=== PATIENT | female | born 1985 | race African-American/Black ===

== ENCOUNTER 2017-06-22 14:40 | Emergency (ER) | payer SELFPAY ==
[~2017-06-22] VITALS: Ht 162.6 cm; Wt 87.0 kg
[2017-06-22] MEDS ORDERED: IOHEXOL 350 MG/ML 10 ML VIAL (for RAD DIAG) IVCONTRAST ONE (14:41)
[2017-06-22 14:42] VITALS: BP 120/76; PULSE 82; RESP 14; TEMP 98.9; O2SAT 100
[2017-06-22] MEDS ORDERED: SODIUM CHLOR 0.9% 1000 ML INJ 1,000 ML IV SCH (17:25)
--- NOTE | 2017-06-22 17:28 | PD ---
HPI Chief Complaint: Abdominal Pain Time Seen by Provider: 17:22 Travel History International Travel<30 days: No Contact w/Intl Traveler<30days: No Traveled to known affect area: No History of Present Illness HPI 32-year-old female here for evaluation of vomiting and abdominal pain. The patient reports that she has had several episodes of vomiting over the last 3 days. She started having abdominal pain today. Pain is periumbilical and epigastric, described as sharp and stabbing, constant, worse with movements, moderate to severe. Emesis is bilious. History of cholecystectomy and bilateral tubal ligation. No urinary symptoms. No vaginal bleeding or discharge. PFSH Past Medical History Cardiovascular Problems: No Diminished Hearing: No Gastrointestinal Disorders: Yes (GB Dse) Genitourinary: Yes (HX OF UTI'S) Immunizations Current: Yes Migraines: Yes Thyroid Disease: No Ulcer: No ?: Not Menopausal: Yes : 3 Para: 3 Miscarriage: 0 : 0 Ectopic : No Ovarian Cysts: No Tubal Ligation: Yes Past Surgical History Abdominal Surgery: Yes (3 C SECTIONS) Section: Yes (X3) Cholecystectomy: Yes Gynecologic Surgery: Yes (C-SECT X 3) Hysterectomy: No Social History Alcohol Use: Yes (OCCASSIONAL) Tobacco Use: Yes (5 cig ) Substance Use: Yes (Marijuana ) Allergies-Medications (Allergen,Severity, Reaction): Coded Allergies: ciprofloxacin (Unverified Allergy, Severe, Rash, 01/22/17) morphine (Unverified Allergy, Severe, Swelling, 01/22/17) Reported Meds & Prescriptions Reported Meds & Active Scripts Active No Active Prescriptions or Reported Medications Review of Systems Except as stated in HPI: all other systems reviewed are Neg Physical Exam Narrative GENERAL: Well-developed, well-nourished, no apparent distress. SKIN: Focused skin assessment warm/dry. HEAD: Atraumatic. Normocephalic. EYES: Pupils equal and round. No scleral icterus. No injection or drainage. ENT: Mucous membranes pink and moist. NECK: Trachea midline. No JVD. CARDIOVASCULAR: Regular rate and rhythm. No murmur appreciated. RESPIRATORY: No accessory muscle use. Clear to auscultation. Breath sounds equal bilaterally. GASTROINTESTINAL: Abdomen soft, nondistended. Mild periumbilical and epigastric tenderness without rebound or guarding. No hernias. MUSCULOSKELETAL: No obvious deformities. No clubbing. No cyanosis. No edema. NEUROLOGICAL: Awake and alert. No obvious cranial nerve deficits. Motor grossly within normal limits. Normal speech. PSYCHIATRIC: Appropriate mood and affect; insight and judgment normal. Data Data Last Documented VS Vital Signs Date Time Temp Pulse Resp B/P (MAP) Pulse Ox O2 Delivery O2 Flow Rate FiO2 06/22/17 18:19 96 Room Air 06/22/17 14:42 98.9 82 14 Orders Orders Complete Blood Count With Diff (06/22/17 17:25) Comprehensive Metabolic Panel (06/22/17 17:25) Lipase (06/22/17:25) Prothrombin Time / Inr (Pt) (06/22/17:25) Act Partial Throm Time (Ptt) (06/22/17:25) Urinalysis - C+S If Indicated (06/22/17 17:25) Ct Abd/Pel W Iv Contrast(Rout) (06/22/17 17:25) Iv Access Insert/Monitor (06/22/17 17:25) Ecg Monitoring (06/22/17 17:25) Oximetry (06/22/17 17:25) Ondansetron Inj (Zofran Inj) (06/22/17 17:30) Sodium Chlor 0.9% 1000 Ml Inj (Ns 1000 M (06/22/17 17:25) Sodium Chloride 0.9% Flush (Ns Flush) (06/22/17 17:30) Ed Urine Pregnancytest Poc (06/22/17 17:25) Hydromorphone Pf Inj (Dilaudid Pf Inj) (06/22/17 17:30) Pantoprazole Inj (Protonix Inj) (06/22/17 17:30) Influenzae A/B Antigen (06/22/17 17:28) Iohexol 350 Inj (Omnipaque 350 Inj) (06/22/17 14:41) Labs Laboratory Tests Test 06/22/17 17:30 White Blood Count 11.7 TH/MM3 Red Blood Count 4.75 MIL/MM3 Hemoglobin 13.3 GM/DL Hematocrit 39.1 % Mean Corpuscular Volume 82.3 FL Mean Corpuscular Hemoglobin 27.9 PG Mean Corpuscular Hemoglobin Concent 33.9 % Red Cell Distribution Width 15.1 % Platelet Count 333 TH/MM3 Mean Platelet Volume 8.7 FL Neutrophils (%) (Auto) 64.4 % Lymphocytes (%) (Auto) 26.9 % Monocytes (%) (Auto) 6.8 % Eosinophils (%) (Auto) 1.3 % Basophils (%) (Auto) 0.6 % Neutrophils # (Auto) 7.5 TH/MM3 Lymphocytes # (Auto) 3.1 TH/MM3 Monocytes # (Auto) 0.8 TH/MM3 Eosinophils # (Auto) 0.1 TH/MM3 Basophils # (Auto) 0.1 TH/MM3 CBC Comment DIFF FINAL Differential Comment Prothrombin Time 9.7 SEC Prothromb Time International Ratio 1.0 RATIO Activated Partial Thromboplast Time 29.2 SEC Urine Color YELLOW Urine Turbidity HAZY Urine pH 7.0 Urine Specific [place] 1.025 Urine Protein TRACE mg/dL Urine Glucose (UA) NEG mg/dL Urine Ketones NEG mg/dL Urine Occult Blood NEG Urine Nitrite NEG Urine Bilirubin NEG Urine Urobilinogen LESS THAN 2.0 MG/DL Urine Leukocyte Esterase TRACE Urine RBC 2 /hpf Urine WBC 1 /hpf Urine Squamous Epithelial Cells 7 /hpf Urine Hyaline Casts 1 /lpf Urine Mucus FEW /lpf Microscopic Urinalysis Comment CULT NOT INDICATED Blood Urea Nitrogen 9 MG/DL Creatinine 0.87 MG/DL Random Glucose 75 MG/DL Total Protein 8.8 GM/DL Albumin 4.0 GM/DL Calcium Level 9.0 MG/DL Alkaline Phosphatase 77 U/L Aspartate Amino Transf (AST/SGOT) 15 U/L Alanine Aminotransferase (ALT/SGPT) 21 U/L Total Bilirubin 0.4 MG/DL Sodium Level 136 MEQ/L Potassium Level 4.2 MEQ/L Chloride Level 107 MEQ/L Carbon Dioxide Level 23.2 MEQ/L Anion Gap 6 MEQ/L Estimat Glomerular Filtration Rate 91 ML/MIN Lipase 146 U/L MDM Medical Decision Making Medical Screen Exam Complete: Yes Emergency Medical Condition: Yes Differential Diagnosis Gastritis, pancreatitis, hepatobiliary disease, appendicitis, bowel obstruction Narrative Course Vital signs are within normal limits. CBC is unremarkable. CMP is unremarkable. Lipase is 146. UA is not suggestive of UTI. Urine is negative. CT abdomen pelvis shows no acute abnormality. Patient was made aware of all findings per she was given pain medication and antiemetics. She is resting comfortably. There are no peritoneal signs on exam. She likely has gastritis or peptic ulcer disease. She'll be started on Protonix and advised to follow-up with a primary care physician as well as a machine sweeper brush maker this week. She was informed on when to return to the emergency department. She verbalizes understanding and agreement with plan. Diagnosis Primary Impression: Abdominal pain Qualified Codes: R10.13 - Epigastric pain Additional Impression: Nausea and vomiting Qualified Codes: R11.2 - Nausea with vomiting, unspecified Referrals: Octavia Koroma MD 3 days [facility] 3 days Additional Instructions: Follow-up with a primary care physician this week. Follow-up with machine sweeper brush maker Dr. Koroma or machine sweeper brush maker of your choice this week. Return to the emergency department for worsening symptoms or any other concerns. Scripts Pantoprazole (Protonix) 40 Mg Tab 40 MG PO DAILY for Reflux, #30 TAB 2 Refills Prov: Naveen Paez MD 06/22/17 Ondansetron Odt (Zofran Odt) 4 Mg Tab 4 MG SL Q8HR Y for Nausea/Vomiting, #20 TAB 0 Refills Prov: Naveen Paez MD 06/22/17 Disposition: 01 DISCHARGE HOME Condition: Stable Navene Paez MD Jun 22, 2017 17:28
[2017-06-22] MEDS ORDERED: HYDROmorphone HCL PF 2 MG/ML VIAL IV PUSH ONE (17:30)
[2017-06-22] MEDS ORDERED: SODIUM CHLORIDE 0.9% FLUSH 10 ML FLUSH IV FLUSH PRN (17:30)
[2017-06-22] MEDS ORDERED: ONDANSETRON HCL 4 MG/2 ML VIAL IVP ONE (17:30)
[2017-06-22] MEDS ORDERED: PANTOPRAZOLE SODIUM 40 MG VIAL IV PUSH ONE (17:30)
[2017-06-22 18:10] LABS: AUTOMATED NEUTROPHIL # 7.5 TH/MM3 (1.8-7.7); BASOPHIL # 0.1 TH/MM3 (0-0.2); BASOPHIL % 0.6 % (0.0-2.0); EOSINOPHIL # 0.1 TH/MM3 (0-0.4); EOSINOPHIL % 1.3 % (0.0-4.0); HEMATOCRIT 39.1 % (35.0-46.0); HEMOGLOBIN 13.3 GM/DL (11.6-15.3); LYMPH % 26.9 % (9.0-44.0); LYMPHOCYTE # 3.1 TH/MM3 (1.0-4.8); MEAN CELL VOLUME 82.3 FL (80.0-100.0); MEAN CORPUSCULAR HEMOGLOBIN 27.9 PG (27.0-34.0); MEAN CORPUSCULAR HGB CONC 33.9 % (32.0-36.0); MEAN PLATELET VOLUME 8.7 FL (7.0-11.0); MONO % 6.8 % (0.0-8.0); MONOCYTE # 0.8 TH/MM3 (0-0.9); NEUT % 64.4 % (16.0-70.0); PLATELET COUNT 333 TH/MM3 (150-450); RED BLOOD COUNT 4.75 MIL/MM3 (4.00-5.30); RED CELL DISTRIBUTION WIDTH 15.1 % (11.6-17.2); WHITE BLOOD COUNT 11.7 TH/MM3 (4.0-11.0)
[2017-06-22 18:15] LABS: BILIRUBIN, URINE NEG (NEG); BLOOD, URINE NEG (NEG); GLUCOSE,URINE NEG (NEG); HYALINE CAST, URINE 1 /lpf (RARE); KETONE, URINE NEG (NEG); MUCUS URINE FEW /lpf (OCC); NITRITE,URINE NEG (NEG); SQUAMOUS EPITHELIAL CELL URINE 7 /hpf (0-5); URINE COLOR YELLOW (YELLW/STRAW); URINE LEUKOCYTE ESTERASE TRACE (NEG)
[2017-06-22 18:19] VITALS: O2SAT 96
[2017-06-22 18:23] LABS: PROTHROMBIN TIME - PATIENT 9.7 SEC (9.8-11.6)
[2017-06-22 18:46] LABS: AST (GOT) 15 U/L (15-37); BICARBONATE 23.2 MEQ/L (21.0-32.0); BLOOD UREA NITROGEN 9 MG/DL (7-18); CHLORIDE 107 MEQ/L (98-107); CREATININE 0.87 MG/DL (0.50-1.00); GLOMERULAR FILTRATION RATE 91 ML/MIN (>89); GLUCOSE,RANDOM 75 MG/DL (74-106); LIPASE 146 U/L (73-393); SODIUM (NA) 136 MEQ/L (136-145)
[2017-06-22 18:47] LABS: ALT (GPT) 21 U/L (10-53)
[2017-06-22 18:49] LABS: ALKALINE PHOSPHATASE 77 U/L (45-117); TOTAL BILIRUBIN ADULT 0.4 MG/DL (0.2-1.0); TOTAL PROTEIN 8.8 GM/DL (6.4-8.2)
--- NOTE | 2017-06-22 19:08 | RADRPT ---
EXAM DATE/TIME: 06/22/2017 18:50 [facility] COMPARISON: CT ABDOMEN & PELVIS W/O CONTRAST, February 18, 2016, 6:50. INDICATIONS : Abdomen pain. IV CONTRAST: 80 cc Omnipaque 350 (iohexol) IV ORAL CONTRAST: No oral contrast ingested. RADIATION DOSE: 16.49 CTDIvol (mGy) MEDICAL HISTORY : None SURGICAL HISTORY : Cholecystectomy. Tubal ligation. ENCOUNTER: Initial ACUITY: 1 day PAIN SCALE: 10/10 LOCATION: Bilateral abdomen TECHNIQUE: Volumetric scanning of the abdomen and pelvis was performed. Using automated exposure control and ad justment of the mA and/or kV according to patient size, radiation dose was kept as low as reasonably achievable to obtain optimal diagnostic quality images. DICOM format image data is available electro nically for review and comparison. FINDINGS: LOWER LUNGS: The visualized lower lungs are clear. LIVER: Homogeneous density without lesion. There is no dilation of the biliary tree. No calcified gallston es. SPLEEN: Normal size without lesion. PANCREAS: Within normal limits. KIDNEYS: 2.6 cm benign appearing lower pole cyst on the left. No stones, solid mass or hydronephrosis on eithe r side. ADRENAL GLANDS: Within normal limits. VASCULAR: There is no aortic aneurysm. BOWEL/MESENTERY: The stomach, small bowel, and colon demonstrate no acute abnormality. There is no free intraperitone al air or fluid. The appendix is well-visualized, normal. ABDOMINAL WALL: Within normal limits. RETROPERITONEUM: There is no lymphadenopathy. BLADDER: No wall thickening or mass. REPRODUCTIVE: Within normal limits. INGUINAL: There is no lymphadenopathy or hernia. MUSCULOSKELETAL: Within normal limits for patient age. CONCLUSION: No acute abnormality. Sebastien Perdomo MD on June 22, 2017 at 19:04 Board Certified Radiologist. This report was verified electronically.
[2017-06-22] MEDS ORDERED: ZOFR4TAB3 SL (19:19)
[2017-06-22] MEDS ORDERED: PROT40TA PO (19:19)
== END 2017-06-22 19:39 | disposition home or self-care (01) ==
LOC: NEPD 14:40
DX: R10.13 Epigastric pain (principal); R11.2 Nausea with vomiting, unspecified; F17.210 Nicotine dependence, cigarettes, uncomplicated
CPT/HCPCS: 74177; 80053; 81001; 83690; 84703; 85025; 85610; 85730; 87804; 96361; 96374; 96375; 99285; C9113; J1170; J2405; J7030; Q9967

== ENCOUNTER 2017-07-28 00:03 | Emergency (ER) | payer SELFPAY ==
[~2017-07-28] VITALS: Ht 162.6 cm; Wt 86.0 kg
[~2017-07-28 00:03] MED LIST: PROT40TA PO; ZOFR4TAB3 SL
[2017-07-28 00:05] VITALS: BP 118/79; PULSE 94; RESP 16; TEMP 98.5; O2SAT 100
[2017-07-28] MEDS ORDERED: OSEL75 PO (00:28)
[2017-07-28] MEDS ORDERED: ZITHTAB PO (00:28)
--- NOTE | 2017-07-28 00:28 | PD ---
HPI Chief Complaint: Cold / Flu Symptoms Time Seen by Provider: 00:15 Travel History International Travel<30 days: No Contact w/Intl Traveler<30days: No Traveled to known affect area: No History of Present Illness HPI 32-year-old female complains of headache, sore throat, coughing and body ache. Patient states her symptoms started this morning. Patient states that she had intermittent coughing for the past 2 months. Patient denies any chest pain or shortness of breath. Patient denies abdominal pain. Patient denies any nausea vomiting diarrhea. Patient is a smoker. Patient denies any history of asthma or COPD. PFSH Past Medical History Cardiovascular Problems: No Diminished Hearing: No Gastrointestinal Disorders: Yes (GB Dse) Genitourinary: Yes (HX OF UTI'S) Immunizations Current: Yes Migraines: Yes Thyroid Disease: No Ulcer: No ?: Not LMP: NOW Menopausal: Yes : 3 Para: 3 Miscarriage: 0 : 0 Ectopic : No Ovarian Cysts: No Tubal Ligation: Yes Past Surgical History Abdominal Surgery: Yes (3 C SECTIONS) Section: Yes (X3) Cholecystectomy: Yes Gynecologic Surgery: Yes (C-SECT X 3) Hysterectomy: No Social History Alcohol Use: Yes (OCCASSIONAL) Tobacco Use: Yes (5 cig ) Substance Use: Yes (Marijuana ) Allergies-Medications (Allergen,Severity, Reaction): Coded Allergies: ciprofloxacin (Unverified Allergy, Severe, Rash, 07/28/17) morphine (Unverified Allergy, Severe, Swelling, 07/28/17) Reported Meds & Prescriptions Reported Meds & Active Scripts Active Protonix (Pantoprazole Sodium) 40 Mg Tab 40 Mg PO DAILY Zofran Odt (Ondansetron Odt) 4 Mg Tab 4 Mg SL Q8HR PRN Review of Systems General / Constitutional: No: Fever Eyes: No: Visual changes HENT: No: Headaches Cardiovascular: No: Chest Pain or Discomfort Respiratory: Positive: Cough, No: Shortness of Breath Gastrointestinal: No: Abdominal Pain Genitourinary: No: Dysuria Musculoskeletal: No: Pain Skin: No Rash Neurologic: No: Weakness Psychiatric: No: Depression Endocrine: No: Polydipsia Hematologic/Lymphatic: No: Easy Bruising Physical Exam Narrative GENERAL: Well-nourished, well-developed patient. SKIN: Focused skin assessment warm/dry. HEAD: Normocephalic. EYES: No scleral icterus. No injection or drainage. Throat: Mild erythematous. NECK: Supple, trachea midline. No JVD or lymphadenopathy. No meningismus CARDIOVASCULAR: Regular rate and rhythm without murmurs, gallops, or rubs. RESPIRATORY: Breath sounds equal bilaterally. No accessory muscle use. GASTROINTESTINAL: Abdomen soft, non-tender, nondistended. MUSCULOSKELETAL: No cyanosis, or edema. BACK: Nontender without obvious deformity. No CVA tenderness. Data Data Last Documented VS Vital Signs Date Time Temp Pulse Resp B/P (MAP) Pulse Ox O2 Delivery O2 Flow Rate FiO2 07/28/17 00:05 98.5 94 16 118/79 (92) 100 Room Air Orders Orders Acetaminophen (Tylenol) (07/28/17 00:30) Chest, Single Ap (07/28/17 00:22) MDM Medical Decision Making Medical Screen Exam Complete: Yes Emergency Medical Condition: Yes Differential Diagnosis Differential diagnosis including pharyngitis, bronchitis, pneumonia, reactive airway disease. Narrative Course 32-year-old female with headache, sore throat, coughing, body ache. Patient states that she has chronic recurrent cough for the past 2 months. Patient is a smoker. Diagnosis Primary Impression: Bronchitis Additional Impression: Viral syndrome Patient Instructions: General Instructions Additional Instructions: Z-Zafar as directed. [id number] cough medication as directed. Tylenol and ibuprofen for headache. Follow-up with personal physician. Return if worse. Med/Other Pt SpecificInfo: Prescription(s) given Scripts Oseltamivir (Tamiflu) 75 Mg Cap 75 MG PO BID for Mgmt Viral Infection, #10 CAP 0 Refills Prov: Teddy Pearson MD 07/28/17 Azithromycin (Zithromax Z-Zafar) 250 Mg Dspk 250 MG PO DIRECTED for Infection, #1 DSPK 0 Refills 500 MG (2 tabs) day 1, then 1 tab days 2-5. Prov: Teddy Pearson MD 07/28/17 Disposition: 01 DISCHARGE HOME Condition: Stable Teddy Pearson MD Jul 28, 2017 00:28
[2017-07-28] MEDS ORDERED: ACETAMINOPHEN 325 MG TAB PO ONE (00:30)
--- NOTE | 2017-07-28 00:54 | RADRPT ---
EXAM DATE/TIME: 07/28/2017 00:35 [facility] COMPARISON: No previous studies available for comparison. INDICATIONS : Vomiting and headache x 1 day MEDICAL HISTORY : None. SURGICAL HISTORY : None. ENCOUNTER: Initial ACUITY: 1 day PAIN SCORE: 7/10 LOCATION: Bilateral chest FINDINGS: A single view of the chest demonstrates the lungs to be symmetrically aerated without evidence of mas s, infiltrate or effusion. The cardiomediastinal contours are unremarkable. Osseous structures are intact. CONCLUSION: No acute disease. Valente Barber MD on July 28, 2017 at 0:52 Board Certified Radiologist. This report was verified electronically.
== END 2017-07-28 01:16 | disposition home or self-care (01) ==
LOC: NEPD 00:03
DX: J40 Bronchitis, not specified as acute or chronic (principal); B34.9 Viral infection, unspecified; F17.210 Nicotine dependence, cigarettes, uncomplicated
CPT/HCPCS: 71045; 99283

== ENCOUNTER 2017-09-22 18:08 | Emergency (ER) | payer SELFPAY ==
[~2017-09-22] VITALS: Ht 165.1 cm; Wt 90.5 kg
[~2017-09-22 18:08] MED LIST changes: +OSEL75 PO; +ZITHTAB PO
[2017-09-22 18:25] VITALS: BP 124/60; PULSE 81; RESP 18; TEMP 98; O2SAT 100
[2017-09-22] MEDS ORDERED: PROM25TA10 PO ×2 (20:43→20:52)
[2017-09-22] MEDS ORDERED: MECL-62 PO ×2 (20:43→20:52)
[2017-09-22] MEDS ORDERED: ZOFR4TAB3 SL ×2 (20:43→20:52)
[2017-09-22] MEDS ORDERED: SODIUM CHLOR 0.9% 1000 ML INJ 1,000 ML IV ONE (20:45)
[2017-09-22] MEDS ORDERED: MECLIZINE HCL 25 MG TAB PO ONE (20:45)
[2017-09-22] MEDS ORDERED: ONDANSETRON HCL 4 MG/2 ML VIAL IV PUSH ONE (20:45)
--- NOTE | 2017-09-22 20:45 | PD ---
HPI Chief Complaint: Dizziness Time Seen by Provider: 20:27 Travel History International Travel<30 days: No Contact w/Intl Traveler<30days: No Traveled to known affect area: No History of Present Illness HPI 32-year-old female complains of dizziness and nausea vomiting. Patient states that his symptoms started this morning. Patient states that the dizziness is worse with head movement. Patient denies any visual change. Patient states that she has mild aching headache. Patient denies any neck pain. Patient denies earache and sore throat. Patient denies any coughing congestion. Patient denies abdominal pain. Patient states that the nausea vomiting associate with the dizziness. Patient denies any dysuria or frequency. Patient denies any vaginal discharge or bleeding. Patient denies any chance of being . Patient denies any ear ringing or hearing impaired. PFSH Past Medical History Cardiovascular Problems: No Diminished Hearing: No Gastrointestinal Disorders: Yes Genitourinary: Yes (HX OF UTI'S) Immunizations Current: Yes Migraines: Yes Thyroid Disease: No Ulcer: No ?: Not LMP: 09/22/17 Menopausal: Yes : 3 Para: 3 Miscarriage: 0 : 0 Ectopic : No Ovarian Cysts: No Tubal Ligation: Yes Past Surgical History Abdominal Surgery: Yes (3 C SECTIONS) Section: Yes (X3) Cholecystectomy: Yes Gynecologic Surgery: Yes (C-SECT X 3) Hysterectomy: No Social History Alcohol Use: Yes (OCCASSIONAL) Tobacco Use: Yes (5 cig ) Substance Use: Yes (Marijuana ) Allergies-Medications (Allergen,Severity, Reaction): Coded Allergies: ciprofloxacin (Unverified Allergy, Severe, Rash, 07/28/17) morphine (Unverified Allergy, Severe, Swelling, 07/28/17) Reported Meds & Prescriptions Reported Meds & Active Scripts Active Phenergan (Promethazine HCl) 25 Mg Tablet 25 Mg PO Q6H PRN Zofran Odt (Ondansetron Odt) 4 Mg Tab 4 Mg SL Q6HR PRN Meclizine (Meclizine HCl) 25 Mg Tab 25 Mg PO TID PRN Tamiflu (Oseltamivir Phosphate) 75 Mg Cap 75 Mg PO BID Zithromax Z-Zafar (Azithromycin) 250 Mg Dspk 250 Mg PO DIRECTED 500 MG (2 tabs) day 1, then 1 tab days 2-5. Protonix (Pantoprazole Sodium) 40 Mg Tab 40 Mg PO DAILY Zofran Odt (Ondansetron Odt) 4 Mg Tab 4 Mg SL Q8HR PRN Review of Systems General / Constitutional: No: Fever Eyes: No: Visual changes HENT: Positive: Vertigo, Lightheadedness, No: Headaches Cardiovascular: No: Chest Pain or Discomfort Respiratory: No: Shortness of Breath Gastrointestinal: No: Abdominal Pain Genitourinary: No: Dysuria Musculoskeletal: No: Pain Skin: No Rash Neurologic: No: Weakness Psychiatric: No: Depression Endocrine: No: Polydipsia Hematologic/Lymphatic: No: Easy Bruising Physical Exam Narrative GENERAL: Well-nourished, well-developed patient. SKIN: Focused skin assessment warm/dry. HEAD: Normocephalic. EYES: No scleral icterus. No injection or drainage. NECK: Supple, trachea midline. No JVD or lymphadenopathy. CARDIOVASCULAR: Regular rate and rhythm without murmurs, gallops, or rubs. RESPIRATORY: Breath sounds equal bilaterally. No accessory muscle use. GASTROINTESTINAL: Abdomen soft, non-tender, nondistended. MUSCULOSKELETAL: No cyanosis, or edema. BACK: Nontender without obvious deformity. No CVA tenderness. Neurologic exam normal. Data Data Last Documented VS Vital Signs Date Time Temp Pulse Resp B/P (MAP) Pulse Ox O2 Delivery O2 Flow Rate FiO2 09/22/17 18:25 98.0 81 18 124/60 (81) 100 Orders Orders Basic Metabolic Panel (Bmp) (09/22/17 20:36) Iv Access Insert/Monitor (09/22/17 20:36) Sodium Chlor 0.9% 1000 Ml Inj (Ns 1000 M (09/22/17 20:45) Ondansetron Inj (Zofran Inj) (09/22/17 20:45) Meclizine (Antivert) (09/22/17 20:45) Labs Laboratory Tests Test 09/22/17 20:41 Blood Urea Nitrogen 9 MG/DL Creatinine 0.83 MG/DL Random Glucose 79 MG/DL Calcium Level 9.1 MG/DL Sodium Level 138 MEQ/L Potassium Level 4.0 MEQ/L Chloride Level 108 MEQ/L Carbon Dioxide Level 24.9 MEQ/L Anion Gap 5 MEQ/L Estimat Glomerular Filtration Rate 96 ML/MIN [facility] Medical Decision Making Medical Screen Exam Complete: Yes Emergency Medical Condition: Yes Interpretation(s) 21:48 PM. BMP within normal limits. Differential Diagnosis Differential diagnosis including vertigo, dehydration, electrolyte imbalance. Narrative Course 32-year-old female with dizziness and nausea vomiting. The dizziness is worse with head movement. Normal saline solution 1 L IV bolus. Zofran 4 mg IV. Meclizine 25 mg p.o. Diagnosis Primary Impression: Acute onset of severe vertigo Patient Instructions: General Instructions Additional Instructions: Meclizine and Zofran as needed. Follow-up with personal physician. Follow with ENT if persistent problem. Return if worse. Med/Other Pt SpecificInfo: Prescription(s) given Scripts Promethazine (Phenergan) 25 Mg Tablet 25 MG PO Q6H Y for NAUSEA OR VOMITING, #10 TAB 0 Refills Prov: Teddy Pearson MD 09/22/17 Ondansetron Odt (Zofran Odt) 4 Mg Tab 4 MG SL Q6HR Y for Nausea/Vomiting, #10 TAB 0 Refills Prov: Teddy Pearson MD 09/22/17 Meclizine (Meclizine) 25 Mg Tab 25 MG PO TID Y for VERTIGO, #21 TAB 0 Refills Prov: Teddy Pearson MD 09/22/17 Disposition: 01 DISCHARGE HOME Condition: Stable Teddy Pearson MD Sep 22, 2017 20:45
[2017-09-22 21:17] LABS: BICARBONATE 24.9 MEQ/L (21.0-32.0); CALCIUM 9.1 MG/DL (8.5-10.1); CREATININE 0.83 MG/DL (0.50-1.00)
== END 2017-09-22 22:10 | disposition home or self-care (01) ==
LOC: NEPD 18:08
DX: R42 Dizziness and giddiness (principal); R11.2 Nausea with vomiting, unspecified; R51 Headache; F17.210 Nicotine dependence, cigarettes, uncomplicated; Z79.899 Other long term (current) drug therapy; Z88.5 Allergy status to narcotic agent; Z88.8 Allergy status to other drugs, medicaments and biological substances
CPT/HCPCS: 80048; 96374; 99284; J2405; J7030